=== PATIENT | female | born 1955 | race Asian ===

== ENCOUNTER 2016-10-03 01:00 | Emergency (ER) | payer OTHER ==
[2016-10-03 01:02] VITALS: TEMP 98.3
[2016-10-03 02:16] VITALS: BP 117/69; PULSE 84
[2016-10-04] MEDS ORDERED: TYLENOL 500MG500 MG PO (13:10)
[2016-10-04] MEDS ORDERED: PHENERGAN 25 TA25 MG PO (15:41)
== END 2016-10-03 02:16 | disposition home or self-care (01) ==
LOC: COL.ER 01:00 → EDBD 01:10 → COL.ER 02:16
DX: S52.501A Unspecified fracture of the lower end of right radius, initial encounter for closed fracture (principal); S52.611A Displaced fracture of right ulna styloid process, initial encounter for closed fracture; W06.XXXA Fall from bed, initial encounter

== ENCOUNTER 2016-10-04 12:00 | Day surgery (SDC) | payer OTHER ==
[~2016-10-04] VITALS: Ht 149.9 cm; Wt 47.3 kg
[2016-10-04 13:03] VITALS: BP 110/58; PULSE 82; TEMP 98.9
[2016-10-04] MEDS ORDERED: TYLENOL 500MG500 MG PO (13:10)
[2016-10-04 15:12] VITALS: BP 106/65; PULSE 78
[2016-10-04 15:27] VITALS: BP 109/60; PULSE 74
[2016-10-04] MEDS ORDERED: PHENERGAN 25 TA25 MG PO (15:41)
[2016-10-04 15:42] VITALS: BP 116/61; PULSE 72
== END 2016-10-04 16:06 | disposition home or self-care (01) ==
LOC: SDCO 12:00
DX: S52.501A Unspecified fracture of the lower end of right radius, initial encounter for closed fracture (principal); S52.611A Displaced fracture of right ulna styloid process, initial encounter for closed fracture
CPT/HCPCS: J2704; J3010; J7120